=== PATIENT | female | born 1985 | race Caucasian/White ===

== ENCOUNTER 2019-03-11 19:15 | Inpatient (IN) | payer OTHER ==
[~2019-03-11] VITALS: Ht 162.6 cm; Wt 65.8 kg
[2019-03-11 19:20] VITALS: BP 137/98
[2019-03-11 20:10] LABS: ABSOLUTE NEUTROPHILS 5.3 thou/uL (1.4-8.2); BASOPHILS 0.7 % (0.0-2.0); EOSINOPHILS 0.7 % (0.0-3.0); HEMATOCRIT 45.3 % (37.0-47.0); HEMOGLOBIN 15.2 gm/dL (12.0-15.0); LYMPHOCYTES 21.6 % (24.0-44.0); MCH 29.3 pg (26.0-34.0); MCHC 33.5 g/dL (28.0-37.0); MCV 87.3 fL (80.0-100.0); MONOCYTES 7.9 % (1.0-8.0); PLATELET COUNT 376 thou/uL (150-400); POLYS 69.1 % (36.0-66.0); RBC 5.19 mil/uL (4.20-5.00); RDW 13.2 % (10.5-14.5); WBC 7.6 thou/uL (4.0-11.0)
[2019-03-11 20:11] LABS: ICTOTEST (BILI CONFIRMATORY) Negative (Negative); URINE BILIRUBIN NEGATIVE (Negative); URINE BLOOD NEGATIVE (Negative); URINE CLARITY CLEAR; URINE COLOR YELLOW; URINE GLUCOSE-RANDOM* NEGATIVE (Negative); URINE KETONES 1+ (Negative); URINE LEUKOCYTES NEGATIVE (Negative); URINE NITRITE NEGATIVE (Negative); URINE PROTEIN (DIPSTICK) NEGATIVE (Negative); URINE SPECIFIC GRAVITY >= 1.030 (1.005-1.035); URINE UROBILINOGEN 0.2 E.U./dl (0.2-1.0)
[2019-03-11] MEDS ORDERED: ADDERALL 10 MG10 MG PO (20:13)
[2019-03-11] MEDS ORDERED: EFFER-K 20 MEQ20 ME1 PO (20:13)
[2019-03-11 20:25] LABS: CALCIUM 10.3 mg/dL (8.5-10.1); CREATININE 0.7 mg/dL (0.6-1.0); POTASSIUM 3.9 mmol/L (3.5-5.1)
[2019-03-11 20:31] LABS: ALBUMIN 4.8 g/dL (3.4-5.0); DIRECT BILIRUBIN 0.1 mg/dL (<0.1-0.3); TOTAL BILIRUBIN 0.5 mg/dL (<0.1-1.0); TOTAL PROTEIN 9.3 g/dL (6.4-8.2)
[2019-03-11 21:14] LABS: AMP/METHAMP POSITIVE (Negative); BARBITURATES Negative (Negative); BENZODIAZEPINES POSITIVE (Negative); COCAINE Negative (Negative); METHADONE Negative (Negative); OPIATES Negative (Negative); PCP Negative (Negative)
[2019-03-11 22:36] VITALS: BP 155/101
[2019-03-11] MEDS ORDERED: CLONAZEPAM 0.50.5 M1 PO (22:54)
[2019-03-11 22:55] VITALS: BP 159/105
[2019-03-11] MEDS ORDERED: DICYCLOMINE HCL10 MG PO (22:55)
[2019-03-11 23:10] VITALS: BP 132/79
--- NOTE | 2019-03-12 00:37 | NUR ---
ADMISSION ASSESSMENT COMPLETED. PT IS ALERT AND ORIENTED. WITH SOME ANXIETY AND EASILY GETS TEARFUL. REPORTS FEELING BETTER SINCE BEING TREATED IN THE ER. PT DENIES NAUSEA AT THIS TIME. ON CLR LIQUIDS-OBSERVED CHEWING ON ICE WITH NO DIFFICULTIES.IV FLUIDS INFUSING. PT REPORTS COREY HIP PAIN AND A RECENT FALL WITH PAIN TO LEFT ANKLE. PT PLACED ON FALL PREC AND EDUCATION PROVIDED. SHE IS AFEBRILE. ON ROOM AIR. DENIES RESP DISTRESS.HAS A SUPPOTTIVE BY THE BEDSIDE. WILL CONTINUE WITH POC TILL EOS.
[2019-03-12] MEDS ORDERED: TRAMADOL 50 MG50 MG PO (03:25)
[2019-03-12] MEDS ORDERED: NEURONTIN 300M300 M2 PO (03:26)
[2019-03-12] MEDS ORDERED: TRILEPTAL150 MG PO (03:28)
[2019-03-12] MEDS ORDERED: FLEXERIL PO (03:30)
[2019-03-12 08:19] LABS: HEMATOCRIT 39.3 % (37.0-47.0); MCH 29.3 pg (26.0-34.0); MCHC 33.4 g/dL (28.0-37.0); MCV 87.6 fL (80.0-100.0); RBC 4.48 mil/uL (4.20-5.00); RDW 13.3 % (10.5-14.5)
[2019-03-12 08:27] LABS: HEMOGLOBIN 13.1 gm/dL (12.0-15.0)
[2019-03-12 08:52] LABS: ALBUMIN 3.4 g/dL (3.4-5.0); CALCIUM 8.8 mg/dL (8.5-10.1); CREATININE 0.6 mg/dL (0.6-1.0); POTASSIUM 3.7 mmol/L (3.5-5.1); TOTAL BILIRUBIN 0.4 mg/dL (<0.1-1.0)
[2019-03-12 10:08] VITALS: BP 104/62
--- NOTE | 2019-03-12 11:49 | NUR ---
FAXED FACE SHEET TO DOUG AT [facility] FOR HELP WITH MEDICAID [place] AND [employer]. SECUR[employer] [place] RECEIVED CONFIRMATION.
[2019-03-12] MEDS ORDERED: EFFEXOR XR75 MG PO (14:57)
[2019-03-12 18:32] VITALS: BP 122/72
[2019-03-12 19:00] VITALS: BP 123/92
--- NOTE | 2019-03-12 20:14 | NUR ---
ASSUMED CARE OF PATIENT AT 0715, PATIENT VERY SLEEPY THIS AM, WAS AROUSABLE. AFTER PATIENT WOKE UP COMPLETELY. ASSESSMENT DONE. PATIENT UP WITH 1 ASSIST, BUT APPEARS STEADY ON HER FEET. PATIENT HAS RIGHT AC IV IN PLACE, WITH NS AT 125CC/HR GOING, RECEIVED IV CIPRO AND FLAGYL. GI CONSULTED AND GLENN/SENIOR OPERATIONS MANAGER SAW THE PATIENT. DR SCHROEDER SAW THE PATIENT TODAY, AND RESTARTED SOME OF HER HOME MEDS, THIS RN NOTIFIED DR SCHROEDER TO RESTART GABAPENTIN AND FLEXIREL, ORDERS PUT IN BY THIS RN. PATIENT C/O PAIN BILATERAL HIPS AND LEFT KNEE, TRAMADOL 1 TABLET GIVEN THIS SHIFT WITH PARTIAL RELIEF. PATIENT TOLERATED CLEAR LIQUIDS TODAY, NO NAUSEA OR DIARRHEA THIS SHIFT. VOIDING W/O DIFFICULTY. ALERT AND ORIENTED X 4. WILL CONTINUE TO MONITOR.
--- NOTE | 2019-03-13 05:33 | NUR ---
PATIENT ALERT AND ORIENTED X4. C/O PAIN, MED GIVEN. DENIES N/V. UP TO BATHROOM. REMAINS IN ISO FOR C-DIFF. SLEPT OFF AND ON DURING NIGHT.
[2019-03-13] MEDS ORDERED: CIPRO250 M2 PO (12:44)
[2019-03-13] MEDS ORDERED: FLAGYL500 M1 PO (12:45)
--- NOTE | 2019-03-13 14:20 | NUR ---
INITIAL ASSESSMENT/DISCHARGE NOTE: Received high risk nursing referral. SW reviewed chart and spoke with nursing and attending physician. Pt was admitted from home due to colitis. Pt is medically stable for discharge home today. SW attempted to meet with pt earlier today. Pt was sleeping soundly during time of SW visit. Pt in isolation to rule out c.diff. Pt needing cab ride home. SW to follow up with pt and provide cab voucher.
[2019-03-13 18:54] VITALS: BP 117/81
[2019-03-13 19:01] VITALS: BP 117/81
[2019-03-13 19:05] VITALS: BP 117/81
--- NOTE | 2019-03-13 20:05 | NUR ---
ASSUMED CARE OF PATIENT AT 0715, PATIENT ALERT AND ORIENTED X 4. PATIENT UP AD PAYAM IN HER ROOM. NO DIARRHEA OR N/V THIS SHIFT. RIGHT AC IV NOT GOOD, THIS RN NOTIFIED DR SCHROEDER OF IV STATUS, HE STATED TO LEAVE OUT, PATIENT DISCHARGING TO HOME TODAY. PATIENT C/O PAIN RECEIVED TRAMADOL X1, AND C/O ANXIETY, THIS RN NOTIFIED DR SCHROEDER OF NEEDING ONETIME ORDER FOR CLONAZEPAM 2MG X 1. DISCHARGE PAPERWORK WENT OVER BY [facility]/[facility], ALL PERSONAL BELONGINGS SET WITH THE PATIENT. DISCHARGED AT 2009.
== END 2019-03-13 20:17 | disposition home or self-care (01) | DRG 392 ==
LOC: ER 19:15 → EROBS 22:01 → 4S 22:01
PROVIDERS: Nurse Practitioner; ADMIT Internal Medicine
DX: K52.9 Noninfective gastroenteritis and colitis, unspecified (principal); F17.210 Nicotine dependence, cigarettes, uncomplicated; F19.10 Other psychoactive substance abuse, uncomplicated; F12.10 Cannabis abuse, uncomplicated; F43.10 Post-traumatic stress disorder, unspecified; X58.XXXA Exposure to other specified factors, initial encounter; Y93.89 Activity, other specified; Z28.21 Immunization not carried out because of patient refusal; Z88.8 Allergy status to other drugs, medicaments and biological substances; Z91.040 Latex allergy status; Y92.89 Other specified places as the place of occurrence of the external cause; Y99.8 Other external cause status
CPT/HCPCS: 10195